=== PATIENT | female | born 1965 | race Caucasian/White ===

== ENCOUNTER 2018-02-22 13:47 | Emergency (ER) | payer BC ==
[~2018-02-22] VITALS: Ht 157.5 cm; Wt 72.5 kg
[~2018-02-22 13:47] MED LIST: ASMANEX HFA13 G1 IH; ASMANEX TW200 MICRO1 IH; CLONAZEPAM0.5 MG PO; FORFIVO XL450 MG PO; LAMICTAL150 M1 PO; MAXALT MLT10 MG PO; MAXALT5 MG PO; MOTRIN800 MG PO; NORTRIPTYLINE H10 MG PO; PERCOCET 5/31 TABLET PO; PRAVASTATIN SOD40 MG PO; PRILOSEC40 MG PO; RISPERDAL0.5 MG PO; VENTOLIN HFA18 GM IH
[2018-02-22 15:36] VITALS: BP 171/97
== END 2018-02-22 15:38 | disposition home or self-care (01) ==
LOC: EME 13:47
DX: G43.909 Migraine, unspecified, not intractable, without status migrainosus (principal); R07.89 Other chest pain; R53.1 Weakness; R20.2 Paresthesia of skin; J45.909 Unspecified asthma, uncomplicated; Z87.891 Personal history of nicotine dependence
CPT/HCPCS: 93005; 99281; 99283